=== PATIENT | female | born 1980 | race Caucasian/White ===

== ENCOUNTER → 2019-01-04 11:33 | Outpatient (CLI) | payer MEDICAID | END | disposition home or self-care (01) | LOC: D.RAD 11:33 | PROVIDERS: ATTEND Family Medicine | DX: J18.9 Pneumonia, unspecified organism (principal) ==

== ENCOUNTER → 2019-12-28 12:05 | Outpatient (CLI) | payer MEDICAID ==
--- NOTE | 2019-12-30 08:35 | EC ---
PATIENT:JACKY TRAN DATE OF SERVICE: 12/28/19 SEX: F MEDICAL RECORD: [id number] DATE OF : 78 LOCATION:[facility] AGE OF PATIENT: 39 ADMISSION DATE: 12/28/19 REFERRING PHYSICIAN: INTERPRETING PHYSICIAN: SANTOS JOSEPH MD ECHOCARDIOGRAM REPORT ECHO CHARGES 4 ECHO COMPLETE Date: 12/28/19 CLINICAL DIAGNOSIS: HEART MURMUR ECHOCARDIOGRAPHIC MEASUREMENTS (adult normal given) AC root (d.<3.7cm) 3.4 cm LV Septum d (<1.2 cm> 1.2 cm Valve Excursion 1.8 cm LV Septum (systole) 1.4 cm Left Atria (s.<4.0cm> 3.3 cm LVPW d(<1.2cm) 1.3 cm RV (d.<2.3cm) 3.6 cm LVPW (sytole) 1.4 cm LV diastole(<5.6CM) 4.8 cm MV E-F(>70mm/sec) cm LV systole 3.4 cm LVOT Diameter 1.8 cm MV exc.(>10mm) 1.1 cm Est.ejection fraction (50-75%) % DOPPLER: LVIT cm/sec A 71.0 cm/sec E 88.0 cm/sec LA cm/sec RVSP 19 mmHg LVOT 101 cm/sec AOP1/2T m/s Asc. Ao 137 cm/sec RVOT 98 cm/sec RA cm/sec PA 132 cm/sec AV Gradient Peak 7.53 mmHg AV Mean 4.38 mmHg AV Area 2.0 cm MV Gradient Peak 3.71 mmHg MV Mean 1.78 mmHg MV Area cm COMMENTS: Paper Machine Backtender: 2 DAPHNE ROBERTSON Sales Ambassador: 3 Dr. Wright TAPE# PACS Pericardial Effusion N DATE OF SERVICE: Adequate 2D, color flow imaging, spectral Doppler, and M-Mode. Mild LVH. LV internal dimensions are normal. Wall motion is normal. EF is greater than or equal to 55%. Aortic valve is tricuspid. No evidence of stenosis by Doppler interrogation. Left atrium is normal. Mitral valve shows no prolapse. Trace MR. Right-sided chambers are grossly normal. Trace TR. TRANSINT:[id number] Voice Confirmation ID: [id number] DOCUMENT ID: [id number] ECHOCARDIOGRAM REPORT [id number] CHELSEA,JACKY JOSEPH,SANTOS Amador MD at 0835 CC: [id number] DICTATION DATE: 12/29/19 0844 DESIGN ENGINEERING SPECIALIST: 12/29/19 1109 DEP CLI 12/28/19 [id number] [place] [address]
== END | disposition home or self-care (01) ==
LOC: D.HCCECHO 12:05
PROVIDERS: ATTEND Internal Medicine Interventional Cardiology
DX: R94.31 Abnormal electrocardiogram [ECG] [EKG] (principal); R01.1 Cardiac murmur, unspecified